=== PATIENT | female | born 1990 | race American Indian/Alaskan Native ===

== ENCOUNTER 2017-04-09 21:30 | Emergency (ER) | payer BC, OTHER ==
--- NOTE | 2017-04-09 23:25 | EDM.PDOC ---
ED HPI GENERAL MEDICAL PROBLEM - General Chief Complaint: General Stated Complaint: PAIN IN RIGHT SIDE OF CHEST, [id number] Time Seen by Provider: 04/09/17 23:19 Source of Information: Reports: Patient History Limitations: Reports: No Limitations - History of Present Illness INITIAL COMMENTS - FREE TEXT/NARRATIVE: C/O pain to right upper chest, worse with movement. Denies injury or change in activity. No cough. Tried tylenol , last at 630, did help some. 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 knee before. Neurological History: Reports: None Hematologic History: Reports: None Social & Family History - Family History Family Medical History: Noncontributory - Tobacco Use Smoking Status *Q: Never Smoker Second Hand Smoke Exposure: No - Recreational Drug Use Recreational Drug Use: No ED ROS GENERAL - Review of Systems Review Of Systems: ROS reveals no pertinent complaints other than HPI. Constitutional: Denies: Fever, Chills HEENT: Reports: No Symptoms Respiratory: Reports: No Symptoms Cardiovascular: Reports: No Symptoms GI/Abdominal: Reports: No Symptoms Musculoskeletal: Reports: Muscle Pain Skin: Reports: No Symptoms Neurological: Reports: No Symptoms ED EXAM, GENERAL - Physical Exam Exam: See Below Exam Limited By: No Limitations General Appearance: Alert, No Apparent Distress, Obese Eye Exam: Bilateral Eye: EOMI, PERRL Ear Exam: Bilateral Ear: Auricle Normal, TM normal Nose: Normal Inspection Throat/Mouth: Normal Inspection Head: Atraumatic, Normocephalic Neck: Normal Inspection Respiratory/Chest: No Respiratory Distress, Lungs Clear, Other (mild tenderness righht claviclular area with palpation and external shoulder rotation) Cardiovascular: Normal Peripheral Pulses, Regular Rate, Rhythm GI/Abdominal: Normal Bowel Sounds Extremities: Normal Range of Motion Neurological: Alert, Oriented Psychiatric: Normal Affect Skin Exam: Warm, Dry, Intact Course - Vital Signs Last Recorded V/S: Last Vital Signs Temp 97.1 F 04/09/17 23:44 Pulse 87 04/09/17 23:44 Resp 16 04/09/17 23:44 BP 139/76 04/09/17 23:44 Pulse Ox 99 04/09/17 23:44 Departure - Departure Time of Disposition: 23:19 Disposition: Home, Self-Care 01 Condition: Good Clinical Impression: Right-sided chest wall pain - Discharge Information Instructions: Muscle Strain, [id number] Forms: ED Department Discharge Additional Instructions: alternate tylenol 650mg and ibuprofen 600mg every 4 hours as needed for discomfort follow up in clinic 2-3 days if not improving
[2017-04-09 23:44] VITALS: BP 139/76
== END 2017-04-09 23:47 | disposition home or self-care (01) ==
LOC: DL.ED 21:30
DX: R07.89 Other chest pain (principal)
CPT/HCPCS: 71010; 99284

== ENCOUNTER 2018-08-01 09:17 | Day surgery (SDC) | payer MEDICAID, OTHER ==
[~2018-08-01 09:17] MED LIST: Lactated Ringers 1,000 ML IV SCH; Sodium Chloride 0.9% 10 ML Syringe FLUSH PRN; ceFAZolin 1 GM in Premix Bag 1 BAG IV ONE; ceFAZolin 1 GM in Premix Bag 1 BAG IV SCH
[2018-08-01] MEDS ORDERED: Dexamethasone 4 MG/ML SDV IV ONE (09:18)
[2018-08-01] MEDS ORDERED: Propofol 200 MG/20 ML SDV IV ONE (09:18)
[2018-08-01] MEDS ORDERED: Bupivacaine 0.5% 30 ML SDV INJECT ONE ×2 (09:18→12:51)
[2018-08-01] MEDS ORDERED: Midazolam 1 MG/ML 2 ML SDV IV ONE (09:18)
[2018-08-01] MEDS ORDERED: Ondansetron 4 MG/2 ML SDV IV ONE (09:18)
[2018-08-01] MEDS ORDERED: Metoclopramide 10 MG/2 ML SDV IV ONE (09:18)
[2018-08-01] MEDS ORDERED: Lidocaine 1% 30 ML SDV INJECT ONE ×2 (09:18→12:51)
[2018-08-01] MEDS ORDERED: fentaNYL 100 MCG/2 ML SDV IV ONE (09:18)
[2018-08-01] MEDS ORDERED: Lidocaine 2% 20 ML MDV INJECT ONE (09:18)
[2018-08-01] MEDS ORDERED: Ketorolac 30 MG/ML SDV IVPUSH ONE (09:18)
[2018-08-01] MEDS ORDERED: Bupivacaine 0.5% 30 ML SDV ONE (12:20)
[2018-08-01] MEDS ORDERED: Lidocaine 1% 30 ML SDV ONE (12:20)
[2018-08-01] MEDS ORDERED: ceFAZolin 2 GM in Premix Bag 1 BAG IV ONE (12:30)
[2018-08-01] MEDS ORDERED: Acetaminophen/oxyCODONE 325-5 MG Tab PO PRN (15:21)
--- NOTE | 2018-08-01 15:35 | PCM.OPNOTE ---
- General Post-Op/Procedure Note Date of Surgery/Procedure: 08/01/18 Operative Procedure(s): right ankle fibula non union excision with internal fixation and allograft Pre Op Diagnosis: right ankle fibula non union Post-Op Diagnosis: mark Anesthesia Technique: General LMA Primary Surgeon: Mervat Jasso Anesthesia Provider: David ROBLEDO in mLs: 20 Complications: none Condition: Good Free Text/Narrative:: Pt tolerated procedure well and was transported to recovery with vascular status intact to right LE. [place] fibula plate applied with 3.5 locking and non locking screws. Bio4 allograft Lot [id number], Unit no [id number]. Well padded L&U splint applied with ankle in neutral.
[2018-08-01 17:07] VITALS: BP 119/89; PULSE 98
--- NOTE | 2018-08-02 15:01 | OR ---
DATE: 08/01/2018 PREOPERATIVE DIAGNOSIS: Right ankle distal fibula nonunion. POSTOPERATIVE DIAGNOSIS: Right ankle distal fibula nonunion. PROCEDURE PERFORMED: Right ankle fibula nonunion excision with bone allograft and internal fixation. ANESTHESIA: General LMA with local block of 20 mL 1:1 mixture of 1% lidocaine plain and 0.5% Marcaine plain. TOURNIQUET TIME: 109 minutes pneumatic thigh tourniquet. ESTIMATED BLOOD LOSS: Minimal. SPECIMEN: None. COMPLICATIONS: None. INDICATION: Maria Eugenia is a 28-year-old female, who presents for recheck on a right ankle fracture. I have been seeing her every 4 weeks for this fracture. She initially injured her back on 12/22/2017 when she was playing softball and twisted the right ankle. She did see her primary care after that, who placed her into a CAM boot, nonweightbearing. 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 The ankle did not seem to improve. We tried several months in a CAM boot with no improvement and also tried a bone stimulator, which also did not seem to help. X-rays, 3 views, of the right ankle reveal minimally displaced fracture of the lateral malleolus, has not changed in alignment or in healing since her last few x-rays. There does not seem to be any new bone healing since several months ago, no trabecular bone bridging occurring at the fracture gap that is approximately 3.2 mm on the lateral view. Ankle mortise is intact. The patient voiced good understanding of proposed procedure and possible complications and elects to have surgery at this time. DESCRIPTION OF PROCEDURE: The patient was taken to the operating room lying in supine position. After adequate anesthesia induction, as described above, the right foot and ankle were prepped and draped in usual sterile fashion. A pneumatic thigh tourniquet was inflated to 275 mmHg. Attention was then directed to the lateral ankle where an approximately 7 cm linear incision was made directly overlying the fibula laterally. Sharp and blunt dissections were performed down to the level of the periosteum. A 15 blade was used to incise through the periosteum and the bone fracture was identified. It was noted that there was a nonunion with fibrous tissue and devitalized bone. This was all removed with a curette. It was ensured that all scarred tissue at the nonunion was removed to good bleeding bone. A 0.062 inch K-wire was then used to fenestrate the bones on both sides of the nonunion. Bio4 bone allograft, lot number [id number], unit number [id number], was then placed at the nonunion. Fluoroscopy was used to make sure that the fibula was in good alignment and proper length. A [place] fibula plate was then placed at the lateral fibula for stabilization. Seven [place] 3.5 locking and nonlocking screws were placed at the plate into the fibula. Fluoroscopy was then again used to ensure proper positioning of the plate and screws with good alignment of the fibula. The fibula was also stressed and was noted to be stable at the syndesmosis. The area was then irrigated with copious amounts of sterile saline. The deep closure was completed with 3-0 Vicryl and skin closure was completed with 4-0 nylon. The area was dressed with Xeroform to the incision site, fluffs, Webril, and a well- padded L and U splint with the ankle in 90 degrees. The patient tolerated anesthesia and the procedure well and was transported to recovery with vital signs stable and vascular status intact as noted by immediate hyperemia to all digits upon deflation of the thigh tourniquet. The patient was then discharged home when she met hospital discharge requirements. [facility] /[id number] SUSAN
== END 2018-08-01 17:30 | disposition home or self-care (01) ==
LOC: DL.SDS 09:17
PROVIDERS: ATTEND Podiatrist
DX: S82.61XK Displaced fracture of lateral malleolus of right fibula, subsequent encounter for closed fracture with nonunion (principal); I10 Essential (primary) hypertension; E83.119 Hemochromatosis, unspecified; E66.01 Morbid (severe) obesity due to excess calories; X50.1XXD Overexertion from prolonged static or awkward postures, subsequent encounter; Z68.42 Body mass index [BMI] 45.0-49.9, adult
CPT/HCPCS: 27726; 81025; J0690; J1100; J1885; J2001; J2250; J2405; J2704; J2765; J3010; J3490; J7120; C1713; C1776

== ENCOUNTER 2019-01-16 07:27 | Day surgery (SDC) | payer OTHER ==
[~2019-01-16 07:27] MED LIST changes: -Lactated Ringers 1,000 ML IV SCH; -ceFAZolin 1 GM in Premix Bag 1 BAG IV ONE; -ceFAZolin 1 GM in Premix Bag 1 BAG IV SCH
[2019-01-16] MEDS ORDERED: Bupivacaine 0.5% 30 ML SDV INJECT ONE (07:28)
[2019-01-16] MEDS ORDERED: Lidocaine 1% 30 ML SDV INJECT ONE (07:28)
[2019-01-16] MEDS ORDERED: Ondansetron 4 MG/2 ML SDV IV ONE (07:28)
[2019-01-16] MEDS ORDERED: Dexamethasone 4 MG/ML SDV IV ONE (07:28)
[2019-01-16] MEDS ORDERED: fentaNYL 100 MCG/2 ML SDV IV ONE (07:28)
[2019-01-16] MEDS ORDERED: Propofol 200 MG/20 ML SDV IV ONE (07:28)
[2019-01-16] MEDS ORDERED: Midazolam 1 MG/ML 2 ML SDV IV ONE (07:28)
[2019-01-16] MEDS ORDERED: Ketorolac 30 MG/ML SDV IVPUSH ONE (07:28)
[2019-01-16] MEDS ORDERED: Sodium Chloride 0.9% 10 ML Syringe FLUSH PRN (08:00)
[2019-01-16] MEDS: Lactated Ringers 1,000 ML IV SCH (08:09)
[2019-01-16] MEDS ORDERED: Bupivacaine 0.5% 30 ML SDV ONE (08:45)
[2019-01-16] MEDS ORDERED: Lidocaine 1% 30 ML SDV ONE (08:45)
[2019-01-16] MEDS: ceFAZolin 2 GM in Premix Bag 1 BAG IV ONE (08:59)
[2019-01-16] MEDS: Bupivacaine 0.5% 30 ML SDV INJECT ONE ×2 (09:14→09:47)
[2019-01-16] MEDS: Lidocaine 1% 30 ML SDV INJECT ONE ×2 (09:14→09:47)
[2019-01-16] MEDS ORDERED: Acetaminophen/oxyCODONE 325-5 MG Tab PO PRN (10:00)
--- NOTE | 2019-01-16 10:02 | PCM.OPNOTE ---
- General Post-Op/Procedure Note Date of Surgery/Procedure: 01/16/19 Operative Procedure(s): right ankle hardware removal Pre Op Diagnosis: right ankle painful hardware Post-Op Diagnosis: mark Anesthesia Technique: Local, MAC Primary Surgeon: Mervat Jasso Anesthesia Provider: Latrell Chandler EBL in mLs: 5 Complications: none Condition: Good Free Text/Narrative:: Intake & Output 01/15/19 01/16/19 01/16/19 22:59 06:59 14:59 Intake Total 50 Balance 50 Pt tolerated procedure well and was transported to recovery with vascular status intact to [facility]. Well padded compression dressing placed.
[2019-01-16 11:27] VITALS: BP 104/63; PULSE 85
--- NOTE | 2019-01-16 13:13 | OR ---
DATE: 01/16/2019 PREOPERATIVE DIAGNOSIS: Right ankle painful hardware. POSTOPERATIVE DIAGNOSIS: Right ankle painful hardware. PROCEDURE PERFORMED: Right ankle hardware removal. ANESTHESIA: Local MAC with preoperative local block of 20 mL of 1:1 mixture of 1% lidocaine plain and 0.5% Marcaine plain. TOURNIQUET TIME: 27 minutes, pneumatic ankle tourniquet. ESTIMATED BLOOD LOSS: Minimal. SPECIMEN: None. COMPLICATIONS: None. INDICATIONS: Maria Eugenia is a 28-year-old female who presents status post right ankle fracture ORIF. She states things have been going very well, however, she has some pain right over the hardware when she moves her ankle a certain way. She states she can feel the hardware to that area where it is painful. Otherwise, she does not have any pain when she is doing activities. The fracture has healed well. On x-rays, the right ankle reveals clearly healed distal fibula fracture with the ankle mortise intact, some prominence of the hardware at the very distal aspect of the fibula. The patient voiced good understanding of the proposed procedure and possible complications and elects to have surgery at this time. DESCRIPTION OF PROCEDURE: The patient was taken to the operating room lying in a supine position. After adequate anesthesia induction as described above, the right foot and ankle were prepped and draped in the usual sterile fashion. A high calf tourniquet was inflated to 225 mmHg. Attention was then directed to the lateral aspect of the distal fibula overlying the old incision area where an approximately 7 cm linear incision was made directly overlying the lateral fibula. Sharp and blunt dissection was performed down to the level of the hardware. The hardware was visualized, and all 7 screws and the fibula plate were removed without any issues. The area was then irrigated with copious amounts of sterile saline. Deep closure was completed with 3-0 Vicryl, and skin closure was completed with 4 nylon. The area was dressed with Xeroform to the incision site, fluffs, Webril, and an Dann wrap. She was placed into her Cam boot. She tolerated the anesthesia and procedure well and was transported to recovery with vital signs stable and vascular status intact as noted by immediate hyperemia to all digits upon deflation of the ankle tourniquet. The patient was then discharged home when she met hospital discharge requirements. [facility] /[id number]
== END 2019-01-16 11:20 | disposition home or self-care (01) ==
LOC: DL.SDS 07:27
PROVIDERS: ATTEND Podiatrist
DX: T84.84XA Pain due to internal orthopedic prosthetic devices, implants and grafts, initial encounter (principal)
CPT/HCPCS: 20680; 81025; J0690; J1100; J1885; J2001; J2250; J2405; J2704; J3010; J3490; J7120

== ENCOUNTER 2019-11-29 17:20 | Emergency (ER) | payer SELFPAY ==
[2019-11-29 17:34] VITALS: BP 131/85; PULSE 103
[2019-11-29] MEDS ORDERED: Acyclovir 200 MG Cap PO ONE (18:35)
[2019-11-29] MEDS ORDERED: Lidocaine 2% Viscous Solution 15 ML Cup TOP ONE (18:36)
--- NOTE | 2019-11-29 18:39 | EDM.PDOC ---
Scribed by Deyanira Harman 11/29/19 0079 for Yogesh Iverson MD ED HPI GENERAL MEDICAL PROBLEM - General Chief Complaint: Bite:Animal, Insect Stated Complaint: UPPER LIP, BIT BY SOMETHING POSSIBLY Time Seen by Provider: 11/29/19 18:05 Source of Information: Reports: Patient, RN, RN Notes Reviewed History Limitations: Reports: No Limitations - History of Present Illness INITIAL COMMENTS - FREE TEXT/NARRATIVE: Patient presents to ED by POV stating that she woke up this A.M. with swelling to her upper lip. She is unsure what happened, states that it is itchy feeling. Patient states that she took 1 Benadryl this A.M. unsure of dose Onset: Today Duration: Constant Location: Reports: Other (upper lip) Quality: Reports: Ache Severity: Moderate Improves with: Reports: None Worsens with: Reports: None Associated Symptoms: Reports: No Other Symptoms Upper Lip Pain Score (Numeric/FACES): 7 - Related Data Allergies Allergy/AdvReac Type Severity Reaction Status Date / Time No Known Allergies Allergy Verified 11/29/19 17:33 Home Meds: Home Meds . 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 knee before. Neurological History: Reports: None Psychiatric History: Reports: None Endocrine/Metabolic History: Reports: Obesity/BMI 30+ Hematologic History: Reports: None Immunologic History: Reports: None Oncologic (Cancer) History: Reports: None Dermatologic History: Reports: None - Infectious Disease History Infectious Disease History: Reports: Chicken Pox - Past Surgical History Head Surgeries/Procedures: Reports: None HEENT Surgical History: Reports: None Cardiovascular Surgical History: Reports: None Respiratory Surgical History: Reports: None GI Surgical History: Reports: None Female Surgical History: Reports: None Endocrine Surgical History: Reports: None Neurological Surgical History: Reports: None Musculoskeletal Surgical History: Reports: Other (See Below) Other Musculoskeletal Surgeries/Procedures:: HX OF ANKLE SURGERY Oncologic Surgical History: Reports: None Dermatological Surgical History: Reports: None Social & Family History - Family History Family Medical History: Noncontributory - Tobacco Use Smoking Status *Q: Never Smoker Second Hand Smoke Exposure: No - Caffeine Use Caffeine Use: Reports: Soda Other Caffeine Use: 'KIND OF LIKE 1 OR 2 CANS OF SODA DAILY'. 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 ED EXAM, ANIMAL BITE - Physical Exam Exam: See Below Exam Limited By: No Limitations General Appearance: Alert, WD/WN, No Apparent Distress Throat/Mouth: Other (midline upper lip has a herpetic lesion with vesicals and crusted surface. ) Head: Atraumatic, Normocephalic Neck: Normal Inspection Respiratory/Chest: No Respiratory Distress, Lungs Clear Cardiovascular: Regular Rate, Rhythm Neurological: Alert, Oriented Course - Vital Signs Last Recorded V/S: Last Vital Signs Temp 97.7 F 11/29/19 17:29 Pulse 103 H 11/29/19 17:29 Resp 18 11/29/19 17:29 BP 131/85 11/29/19 17:29 Pulse Ox 99 11/29/19 17:29 - Orders/Labs/Meds Meds: Medications Discontinued Medications Generic Name Dose Route Start Last Admin Trade Name Freq PRN Reason Stop Dose Admin Acyclovir 800 mg 11/29/19 18:35 Zovirax PO 11/29/19 18:36 ONETIME ONE Lidocaine HCl 15 ml 11/29/19 18:36 Xylocaine 2% Viscous TOP 11/29/19 18:37 ONETIME ONE Departure - Departure Time of Disposition: 18:38 Disposition: Home, Self-Care 01 Condition: Good Clinical Impression: Herpes labialis - Discharge Information *PRESCRIPTION DRUG MONITORING PROGRAM REVIEWED*: Not Applicable *COPY OF PRESCRIPTION DRUG MONITORING REPORT IN PATIENT RAJIV: Not Applicable Instructions: Cold Sore, [id number] Forms: ED Department Discharge Additional Instructions: Rx: Valtrex 1g Use over the counter Abreva or other cold sore cream as needed. Sepsis Event Note (ED) - Evaluation Sepsis Screening Result: No Definite Risk - Focused Exam Vital Signs: Vital Signs Temp Pulse Resp BP Pulse Ox 11/29/19 17:29 97.7 F 103 H 18 131/85 99 I have read and agree with the documentation that has been completed regarding this visit. By signing this record, I attest that the documentation was completed in my physical presence and is an accurate record of the encounter.
== END 2019-11-29 18:52 | disposition home or self-care (01) ==
LOC: DL.ED 17:20
DX: B00.1 Herpesviral vesicular dermatitis (principal); E66.9 Obesity, unspecified; Z68.42 Body mass index [BMI] 45.0-49.9, adult
CPT/HCPCS: 99283; A9270

== ENCOUNTER 2020-03-01 18:58 | Emergency (ER) | payer MEDICAID, OTHER ==
[2020-03-01 19:46] VITALS: BP 124/45; PULSE 80
[2020-03-01] MEDS ORDERED: Lidocaine 1% 30 ML SDV INJECT ONE (20:08)
--- NOTE | 2020-03-01 20:27 | EDM.PDOC ---
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 - Related Data Allergies Allergy/AdvReac Type Severity Reaction Status Date / Time No Known Allergies Allergy Verified 03/01/20 19:46 Home Meds: Home Meds . 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 knee before. Neurological History: Reports: None Psychiatric History: Reports: None Endocrine/Metabolic History: Reports: Obesity/BMI 30+ Hematologic History: Reports: None Immunologic History: Reports: None Oncologic (Cancer) History: Reports: None Dermatologic History: Reports: None - Infectious Disease History Infectious Disease History: Reports: Chicken Pox - Past Surgical History Head Surgeries/Procedures: Reports: None HEENT Surgical History: Reports: None Cardiovascular Surgical History: Reports: None Respiratory Surgical History: Reports: None GI Surgical History: Reports: None Female Surgical History: Reports: None Endocrine Surgical History: Reports: None Neurological Surgical History: Reports: None Musculoskeletal Surgical History: Reports: Other (See Below) Other Musculoskeletal Surgeries/Procedures:: HX OF ANKLE SURGERY Oncologic Surgical History: Reports: None Dermatological Surgical History: Reports: None Social & Family History - Family History Family Medical History: Noncontributory - Tobacco Use Tobacco Use Status *Q: Never Tobacco User Second Hand Smoke Exposure: No - Caffeine Use Caffeine Use: Reports: Soda Other Caffeine Use: 'KIND OF LIKE 1 OR 2 CANS OF SODA DAILY'. 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 ED EXAM, SKIN/RASH Exam: See Below Exam Limited By: No Limitations General Appearance: Alert, No Apparent Distress Eye Exam: Bilateral Eye: EOMI Ears: Normal External Exam Nose: Normal Inspection Throat/Mouth: Normal Voice Head: Atraumatic, Normocephalic Neck: Full Range of Motion Respiratory/Chest: Normal Breath Sounds Cardiovascular: Regular Rate, Rhythm Neurological: Alert, Oriented Skin: Wound/Incision (2cm laceration left fith finger pamar surface between PIP and MIP crease CMS intact) ED SKIN PROCEDURES - Laceration/Wound Repair Left Mid-Anterior Digit - 5th (Baby) Appearance: Superficial Anesthetic Type: Local Local Anesthesia - Lidocaine (Xylocaine): 1% Plain Local Anesthetic Volume: 1cc Skin Prep: Chlorhexidine (Hibiciens), Saline Closed with: Sutures Lac/Wound length In cm: 2 Suture Size: 4-0 # of Sutures: 3 Suture Type: Nylon, Interrupted Sterile Dressing Applied: Nurse Tetanus Status Addressed: Yes Course - Vital Signs Last Recorded V/S: Last Vital Signs Temp 96.8 F L 03/01/20 19:37 Pulse 80 03/01/20 19:37 Resp 18 03/01/20 19:37 BP 124/45 L 03/01/20 19:37 Pulse Ox 100 03/01/20 19:37 - Orders/Labs/Meds Meds: Medications Discontinued Medications Generic Name Dose Route Start Last Admin Trade Name Oleksandr PRN Reason Stop Dose Admin Lidocaine HCl 30 ml 03/01/20 20:08 03/01/20 20:12 Xylocaine-Mpf 1% INJECT 03/01/20 20:09 30 ml ONETIME ONE Administration Departure - Departure Time of Disposition: 20:23 Disposition: Home, Self-Care 01 Condition: Good Clinical Impression: Laceration of left little finger Qualifiers: Encounter type: initial encounter Damage to nail status: without damage Foreign body presence: without foreign body Qualified Code(s): S61.217A - Laceration without foreign body of left little finger without damage to nail, initial encounter - Discharge Information *PRESCRIPTION DRUG MONITORING PROGRAM REVIEWED*: No *COPY OF PRESCRIPTION DRUG MONITORING REPORT IN PATIENT RAJIV: No Instructions: Laceration Care, Adult Forms: ED Department Discharge Additional Instructions: keep clean and dry wash at least twice daily with soap and water pat dry cover with bandage sutures out 10-14 days clinic follow up if redness swelling or drainage alternate tylenol and ibuprofen every 4 hours as needed for discomfort Sepsis Event Note (ED) - Evaluation Sepsis Screening Result: No Definite Risk - Focused Exam Vital Signs: Vital Signs Temp Pulse Resp BP Pulse Ox 03/01/20 19:37 96.8 F L 80 18 124/45 L 100
== END 2020-03-01 20:33 | disposition home or self-care (01) ==
LOC: DL.ED 18:58
DX: S61.217A Laceration without foreign body of left little finger without damage to nail, initial encounter (principal); E66.9 Obesity, unspecified; Z68.42 Body mass index [BMI] 45.0-49.9, adult; W26.0XXA Contact with knife, initial encounter; Y99.0 Civilian activity done for income or pay
CPT/HCPCS: 12001; 99282; J2001

== ENCOUNTER 2020-07-06 23:10 | Emergency (ER) | payer MEDICAID, OTHER ==
[2020-07-06 23:22] VITALS: BP 143/73; PULSE 81
[2020-07-06] MEDS ORDERED: Famotidine 20 MG/2 ML SDV IVPUSH ONE (23:35)
[2020-07-06] MEDS ORDERED: Sodium Chloride 0.9% 1,000 ML IV ONE (23:35)
[2020-07-06] MEDS ORDERED: HYDROmorphone 1 MG/ML Syringe IVPUSH ONE (23:35)
[2020-07-06] MEDS ORDERED: Ondansetron 4 MG/2 ML SDV IVPUSH ONE (23:35)
[2020-07-07 00:05] LABS: ANION GAP 13.6 mEq/L (7-13); CHLORIDE,CL 105 mmol/L (98-107); SODIUM,NA 141 mmol/L (136-145)
--- NOTE | 2020-07-07 01:47 | CR ---
PROCEDURE INFORMATION: Exam: XR Abdomen Exam date and time: 07/07/2020 1:01 AM Age: 30 years old Clinical indication: Other: Generalized pain TECHNIQUE: Imaging protocol: XR of the abdomen. Views: Frontal supine view of the abdomen. 1 View. COMPARISON: No relevant prior studies available. FINDINGS: Lungs: The lung bases are clear. Gastrointestinal tract: The stomach is not distended. No pathologically dilated bowel loops are identified. Gas and stool are present in the colon to the level of the rectum. Intraperitoneal space: There is no gross free air. Bones/joints: No acute osseous pathology is identified. Soft tissues: No abnormal soft tissue calcifications are seen. IMPRESSION: No evidence of bowel obstruction or free air. Consider further evaluation with CT if clinical concern persists.
== END 2020-07-07 02:13 | disposition home or self-care (01) ==
LOC: DL.ED 23:10
DX: R10.11 Right upper quadrant pain (principal); R10.31 Right lower quadrant pain; E66.9 Obesity, unspecified; R10.13 Epigastric pain
CPT/HCPCS: 36415; 74018; 80053; 80305; 81003; 81025; 82150; 83605; 83690; 85025; 96374; 96375; 99283; 99284; J1170; J2405; J3490; J7030

== ENCOUNTER 2021-08-24 10:22 | Inpatient (IN) | payer OTHER, MEDICAID ==
[2021-08-24] MEDS ORDERED: Misoprostol 400 MCG (4 X 100 MCG TAB) RECTAL PRN (12:06)
[2021-08-24] MEDS ORDERED: Tranexamic Acid 1,000 MG in Sodium Chloride 0.9% 100 ML IV PRN (12:06)
[2021-08-24] MEDS ORDERED: Sodium Chloride 0.9% 10 ML Syringe FLUSH PRN (12:06)
[2021-08-24] MEDS ORDERED: Lidocaine 1% 30 ML SDV INJECT PRN (12:06)
[2021-08-24] MEDS ORDERED: Methylergonovine 0.2 MG/1 ML Amp IM PRN (12:06)
[2021-08-24] MEDS ORDERED: Carboprost Tromethamine 250 MCG/1 ML Amp IM PRN (12:06)
[2021-08-24] MEDS ORDERED: Ondansetron 4 MG/2 ML SDV IVPUSH PRN (12:06)
[2021-08-24] MEDS ORDERED: Acetaminophen 325 MG Tab PO PRN ×2 (12:06→13:47)
[2021-08-24] MEDS ORDERED: Lactated Ringers 1,000 ML IV ONE (12:06)
[2021-08-24] MEDS ORDERED: Lactated Ringers 1,000 ML IV SCH (12:15)
[2021-08-24] MEDS ORDERED: Oxytocin/Normal Saline 30 UNIT/500 ML BAG IV SCH (12:15)
[2021-08-24] MEDS ORDERED: Simethicone 80 MG Tab.Chew PO PRN (13:47)
[2021-08-24] MEDS ORDERED: Benzocaine/Menthol 20%-0.5% Spray 78 GM Cannister TOP PRN (13:47)
[2021-08-24] MEDS ORDERED: Oxytocin 10 Units/1 ML SDV IM PRN (13:47)
[2021-08-24] MEDS: Docusate Sodium 100 MG Cap PO PRN (19:52)
[2021-08-24] MEDS: Ibuprofen 800 MG Tab PO PRN (19:52)
[2021-08-25] MEDS ORDERED: Measles, Mumps & Rubella Vaccine 0.5 ML SDV SUBCUT ONE (08:00)
[2021-08-25 08:10] VITALS: BP 129/67; PULSE 82
[2021-08-25] MEDS: Docusate Sodium 100 MG Cap PO PRN (08:40)
[2021-08-25] MEDS: Ibuprofen 800 MG Tab PO PRN (08:40)
[2021-08-25] MEDS ORDERED: Prenatal Multivitamin with Calcium/Folic Acid/Iron Tab PO SCH (09:00)
== END 2021-08-25 15:23 | disposition home or self-care (01) | DRG 807 ==
LOC: DL.OBCHECK 10:22 → DL.OB 11:55 → OBSVTOIN 12:56 → DL.OB 12:56
PROVIDERS: ADMIT Family Medicine; ATTEND Family Medicine
PROC: 10E0XZZ Delivery of Products of Conception, External Approach (ICD-10-PCS; principal; 2021-08-24)
PROC: 0HQ9XZZ Repair Perineum Skin, External Approach (ICD-10-PCS; 2021-08-24)
PROC: 3E033VJ Introduction of Other Hormone into Peripheral Vein, Percutaneous Approach (ICD-10-PCS; 2021-08-24)
DX: O99.214 Obesity complicating childbirth (principal); Z37.0 Single live birth; O70.0 First degree perineal laceration during delivery; Z20.822 Contact with and (suspected) exposure to COVID-19; Z3A.37 37 weeks gestation of pregnancy; Z87.891 Personal history of nicotine dependence; Z86.16 Personal history of COVID-19
CPT/HCPCS: 36415; 59025; 59409; 84112; 85027; 90471; 90707; A9270-GY; J2590; J7120; U0002

== ENCOUNTER 2022-07-31 15:07 | Emergency (ER) | payer OTHER, MEDICAID ==
[2022-07-31] MEDS ORDERED: Sodium Chloride 0.9% 10 ML Syringe FLUSH PRN (15:17)
[2022-07-31 15:25] VITALS: BP 132/79; PULSE 90
[2022-07-31 15:48] LABS: CHLORIDE,CL 106 mmol/L (98-107); SODIUM,NA 141 mmol/L (136-145)
[2022-07-31 15:49] LABS: ESTIMATED GFR 83 mL/min (>=60)
== END 2022-07-31 16:30 | disposition home or self-care (01) ==
LOC: DL.ED 15:07
DX: R07.89 Other chest pain (principal); M79.602 Pain in left arm; E66.9 Obesity, unspecified; Z68.43 Body mass index [BMI] 50.0-59.9, adult
CPT/HCPCS: 36415; 71045; 80053; 82150; 83690; 84484; 84703; 85025; 85379; 93005; 93010; 99284; 99285